=== PATIENT | female | born 1985 | race Caucasian/White ===

== ENCOUNTER 2017-07-19 23:09 | Emergency (ER) | payer BC, OTHER ==
[~2017-07-19] VITALS: Ht 162.6 cm; Wt 63.5 kg
[~2017-07-19 23:09] MED LIST: ACHD5005 PO; ALPR1TAB2 PO; CEPH500C PO; DOXY100C2 PO; DOXY100C42 PO; HYDR-1231 PO; HYDR-3714 PO; IBP800T PO; ONDA8TAB9 PO; PHEN200T27 PO; SULF-222 PO; SULF1TAB23 PO; TRM50T PO; VENL150C PO; VNL37.5T PO
--- OUTSIDE RECORDS SUMMARY | 2017-07-19 23:16 | XMS REPORT ---
Author Author TOMASZ ALARCON [facility] eClinical[employer] Address Unknown Phone Unavailable Care Team Providers Care Animal Sitter Name Role Phone TOMASZ ALARCON CP Unavailable Allergies, Adverse Reactions, Alerts Substance Reaction Event Type N.K.D.A. Info Not Available Non Drug Allergy Problems Problem Type Condition ICD-9 Code Onset Dates Condition Status Problem Acute bronchitis 466.0 Active Problem Urinary frequency 788.41 Active Problem Generalized anxiety disorder 300.02 Active Assessment Generalized anxiety disorder 300.02 Active Problem Unspecified disorder of menstruation and other abnormal bleeding from female genital tract 626.9 Active Problem Other and unspecified noninfectious gastroenteritis and colitis 558.9 Active Medications Medication Code System Code Instructions Start Date End Date Status Dosage Lexapro [facility] [address]-85 10 MG Orally Once a day Dec 23, [address] [facility] [address]-87 0.25 MG Orally 1-2 times a day as needed for anxiety Dec 23, 2014 1 tablet Procedures Procedure Coding System Code Date Office Visit, Est Pt., Level 4 CPT-4 87067 Dec 23, 2014 Vital Signs Date/Time: Dec 23, 2014 Temperature 99.3 F Weight 143.4 lbs Height 64 in BMI 24.61 Index Blood Pressure Diastolic 90 mmHg Blood Pressure Systolic 148 mmHg Cardiac Monitoring Heart Rate 80 bpm Results No Known Results Summary Purpose eClinicalWorks Submission
--- OUTSIDE RECORDS SUMMARY | 2017-07-19 23:16 | XMS REPORT | Continuity of Care Document ---
Author Author [facility] Address Unknown Phone Unavailable Allergies Active Description Code Type Severity Reaction Onset Reported/Identified Relationship to Patient Clinical Status Yes No Known Drug Allergies [id number] Drug Allergy Unknown N/A 08/24/2010 Medications There is no data. Problems Date Dx Coded Attending Type Code Diagnosis Diagnosed By 12/22/2007 DWAYNE SHARMA DO 787.02 NAUSEA ALONE 12/22/2007 DWAYNE SHARMA DO 789.01 ABDOMINAL PAIN RIGHT UPPER QUADRANT 01/29/2008 DWAYNE SHARMA DO 463 TONSILLITIS ACUTE 08/24/2010 Ot 634.91 08/26/2010 Ot 634.91 07/13/2011 DWAYNE SHARMA DO 558.9 GASTROENTERITIS NONINFECTIOUS 10/04/2011 DWAYNE SHARMA DO 466.0 ACUTE BRONCHITIS 01/10/2012 Ot 789.00 01/12/2012 Ot 789.00 07/11/2012 DWAYNE SHARMA DO 626.9 UNSPECIFIED DISORDERS OF MENSTRUATION AND OTHER ABNORMAL BLEEDING FROM FEMALE GENITAL TRACT 07/11/2012 DWAYNE SHARMA DO 788.41 URINARY FREQUENCY 11/06/2012 SKINNY SOTO Ot 599.0 11/06/2012 SKINNY SOTO Ot 789.03 09/14/2013 YANELI OH, KAYE Aranda Ot 682.6 02/18/2014 SANA OH, REG Duron Ot 682.5 02/19/2014 JESSY OH, EHSAN Odonnell Ot 682.5 Procedures Code [place] [address] URINE TEST (IN- HOUSE) 07/11/2012 75349 UA W/ CULTURE IF INDICATED 07/11/2012 39601 GC/CHLAM URINE (STATE) 07/12/2012 Results There is no data. Encounters ACCT No. Visit Date/Time Discharge Status Pt. Type Provider Facility Loc./Unit Complaint [id number] 07/11/2012 15:08:00 07/11/2012 23:59:59 CLS Outpatient DWAYNE SHARMA DO [id number] 09/12/2014 10:14:00 09/12/2014 13:41:00 DIS Emergency YANELI OH, KAYE Aranda [facility] ER [id number] 02/19/2014 09:29:00 02/19/2014 11:13:00 DIS Emergency JESSY OH, EHSAN Odonnell [facility] ER [id number] 02/18/2014 07:11:00 02/18/2014 07:59:00 DIS Emergency SANA OH, REG Duron [facility] ER [id number] 09/14/2013 14:26:00 09/14/2013 15:30:00 DIS Emergency KAYE GROVES MD [facility] ER [id number] 11/06/2012 12:45:00 11/06/2012 15:38:00 DIS Emergency SKINNY SOTO [facility] ER [id number] 01/12/2012 13:50:00 Document Registration [id number] 01/10/2012 13:45:00 Document Registration [id number] 08/26/2010 16:13:00 Document Registration [id number] 08/24/2010 16:47:00 Document Registration [email or web address] 09/12/2014 10:16:01 ACT Document Registration
[2017-07-19 23:40] VITALS: BP_SYST 124; BP_SYST 126; BP_SYST 142; BP_DIAS 64; BP_DIAS 69; BP_DIAS 74
[2017-07-19] MEDS ORDERED: LACTATED RINGERS 1,000 ML IV ONE (23:51)
[2017-07-20 00:03] LABS: BASOPHILS % (AUTO) 0 % (0-10); EOSINOPHILS # (AUTO) 0.2 10^3/uL (0.0-0.3); EOSINOPHILS % (AUTO) 2 % (0-10); HEMATOCRIT 37 % (35-52); LYMPHOCYTES % (AUTO) 21 % (12-44); MEAN CORPUSCULAR HEMOGLOBIN 35 PG (25-34); MEAN CORPUSCULAR HGB CONC 35 G/DL (32-36); MEAN CORPUSCULAR VOLUME 101 FL (80-99); MEAN PLATELET VOLUME 9.1 FL (7.4-10.4); MONOCYTES # (AUTO) 0.9 X 10^3 (0.0-1.0); MONOCYTES % (AUTO) 6 % (0-12); NEUTROPHILS # (AUTO) 10.3 X 10^3 (1.8-7.8); NEUTROPHILS % (AUTO) 71 % (42-75); PLATELET COUNT 284 10^3/uL (130-400); RED BLOOD COUNT 3.67 10^6/uL (4.35-5.85); RED CELL DISTRIBUTION WIDTH 11.7 % (10.0-14.5); WHITE BLOOD COUNT 14.4 10^3/uL (4.3-11.0)
[2017-07-20 00:17] LABS: BAND NEUTROPHILS 0 %; BASOPHILS % (MANUAL) 0 %; EOSINOPHILS % (MANUAL) 2 %; LYMPHOCYTES % (MANUAL) 26 %; MONOCYTES % (MANUAL) 2 %; NEUTROPHILS % (MANUAL) 70 %; RBC MORPH NORMAL
--- NOTE | 2017-07-20 00:31 | ED Syncope ---
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 family reports that when the patient was found she was on the floor 'snoring' patient reports her R foot hurts, denies other pain. patient reports nausea that improved after emesis x 1 in [address] lot. patient denies being sick recently or symptoms at this time. Patient ambulated independently to exam room 10 without slow and steady gait Source of Information: Patient, Family (sister), Spouse (fiance) Exam Limitations: No Limitations History of Present Illness Date Seen by Provider: Jul 20, 2017 Time Seen by Provider: 00:15 Initial Comments Patient presents to the ER by private conveyance with her sister and sharee with a chief complaint that tonight she was making popcorn in the kitchen when she started feeling dizzy like she could pass out. She did not have any palpitations, fevers, chills or nausea. She says she put her head down on the counter and then the next thing she knew she woke up with her fianc standing over her. The finino says she was out for about 30 seconds, snoring. She said after that she had a bit of a headache for a few minutes and some nausea and vomited 1 with no blood in it. She says she cannot be because she has a copper T IUD in place. She says her head is not hurting now. She is not on any blood thinners or any medicines at all. She does not have any significant medical or surgical history. She denies dysuria, nausea, abdominal pain, chest pain, thyroid disorder. Allergies and Home Medications Allergies Coded Allergies: No Known Drug Allergies (Unverified , 08/24/10) Home Medications No Active Prescriptions or Reported Meds Patient Home Medication List Home Medication List Reviewed: Yes Constitutional: see HPI, No chills, No diaphoresis, No dizziness, No fever, No malaise, No weakness EENTM: No ear discharge, No ear pain Respiratory: No cough, No short of breath, No wheezing Cardiovascular: see HPI, No chest pain, No edema, No Hx of Intervention, No palpitations, syncope, No vascular heart diseas Gastrointestinal: No abdominal pain, No constipation, No diarrhea, No nausea Genitourinary: No discharge, No dysuria : No Control/STD Prophylaxis: IUD Musculoskeletal: No back pain, No joint pain Skin: No pruritus, No rash Past Dsrveej-Iplxpy-Qqtrsf Hx Patient Social History Alcohol Use: Occasionally Uses Recreational Drug Use: No Smoking Status: Current Everyday Smoker Type Used: Cigarettes Recent Foreign Travel: No Contact w/Someone Who Travel: No Recent Infectious Disease Expo: No Physical Abuse: No Sexual Abuse: No Immunizations Up To Date Date of Influenza Vaccine: Jan 30, 2011 Seasonal Allergies Seasonal Allergies: No Surgeries History of Surgeries: No Respiratory History of Respiratory Disorde: No Cardiovascular History of Cardiac Disorders: No Neurological History of Neurological Disord: No Reproductive System Hx Reproductive Disorders: No Sexually Transmitted Disease: No HIV/AIDS: 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 Physical Exam Vital Signs Vital Signs - First Documented 07/19/17 23:34 Temp 98.1 Pulse 84 Resp 18 B/P (MAP) 142/74 (96) Pulse Ox 99 Capillary Refill : Less Than 3 Seconds General Appearance: No Apparent Distress, WD/WN HEENT: PERRL/EOMI, Pharynx Normal Neck: Full Range of Motion, Normal Inspection, Non Tender, Supple Cardiovascular: Regular Rate, Rhythm, No Edema, No Gallop, No JVD, Normal Peripheral Pulses, Systolic Murmur (2/6) Respiratory: Chest Non Tender, Lungs Clear, Normal Breath Sounds, No Accessory Muscle Use, No Respiratory Distress Gastrointestinal: Normal Bowel Sounds, No Organomegaly, Non Tender, Soft Back: Normal Inspection, No CVA Tenderness Extremities: Normal Capillary Refill, Normal Inspection, Non Tender, No Calf Tenderness, No Pedal Edema Neurologic/Psychiatric: Alert, Oriented x3, No Motor/Sensory Deficits, Normal Mood/Affect, health center assistant II-XII Norm as Tested Cranial Nerves: Normal Hearing, Normal Speech, PERRL Coordination/Gait: Normal Finger to Nose, Normal Gait Motor/Sensory: No Motor Deficit, No Sensory Deficit Skin: Normal Color, Warm/Dry Lymphatic: No Adenopathy Progress/Results/Core Measures Results/Orders Lab Results Laboratory Tests Test 07/19/17 23:55 07/20/17 00:35 Range/Units White Blood Count 14.4 H 4.3-11.0 10^3/uL Red Blood Count 3.67 L 4.35-5.85 10^6/uL Hemoglobin 13.0 11.5-16.0 G/DL Hematocrit 37 35-52 % Mean Corpuscular Volume 101 H 80-99 FL Mean Corpuscular Hemoglobin 35 H 25-34 PG Mean Corpuscular Hemoglobin Concent 35 32-36 G/DL Red Cell Distribution Width 11.7 10.0-14.5 % Platelet Count 284 130-400 10^3/uL Mean Platelet Volume 9.1 7.4-10.4 FL Neutrophils (%) (Auto) 71 42-75 % Lymphocytes (%) (Auto) 21 12-44 % Monocytes (%) (Auto) 6 0-12 % Eosinophils (%) (Auto) 2 0-10 % Basophils (%) (Auto) 0 0-10 % Neutrophils # (Auto) 10.3 H 1.8-7.8 X 10^3 Lymphocytes # (Auto) 3.0 1.0-4.0 X 10^3 Monocytes # (Auto) 0.9 0.0-1.0 X 10^3 Eosinophils # (Auto) 0.2 0.0-0.3 10^3/uL Basophils # (Auto) 0.0 0.0-0.1 10^3/uL Neutrophils % (Manual) 70 % Lymphocytes % (Manual) 26 % Monocytes % (Manual) 2 % Eosinophils % (Manual) 2 % Basophils % (Manual) 0 % Band Neutrophils 0 % Blood Morphology Comment NORMAL Sodium Level 137 135-145 MMOL/L Potassium Level 3.9 3.6-5.0 MMOL/L Chloride Level 105 98-107 MMOL/L Carbon Dioxide Level 23 21-32 MMOL/L Anion Gap 9 5-14 MMOL/L Blood Urea Nitrogen 14 7-18 MG/DL Creatinine 0.90 0.60-1.30 MG/DL Estimat Glomerular Filtration Rate > 60 BUN/Creatinine Ratio 16 Glucose Level 102 70-105 MG/DL Calcium Level 8.5 8.5-10.1 MG/DL Total Bilirubin 0.2 0.1-1.0 MG/DL Aspartate Amino Transf (AST/SGOT) 18 5-34 U/L Alanine Aminotransferase (ALT/SGPT) 14 0-55 U/L Alkaline Phosphatase 30 L 40-136 U/L C-Reactive Protein High Sensitivity 0.03 0.00-0.50 MG/DL Total Protein 6.2 L 6.4-8.2 GM/DL Albumin 3.8 3.2-4.5 GM/DL Thyroid Stimulating Hormone (TSH) 3.33 0.35-4.94 UIU/ML Serum Alcohol < 10 <10 MG/DL Urine Color YELLOW Urine Clarity CLEAR Urine pH 6.5 5-9 Urine Specific [place] 1.015 L 1.016-1.022 Urine Protein NEGATIVE NEGATIVE Urine Glucose (UA) NEGATIVE NEGATIVE Urine Ketones NEGATIVE NEGATIVE Urine Nitrite NEGATIVE NEGATIVE Urine Bilirubin NEGATIVE NEGATIVE Urine Urobilinogen 1 NORMAL MG/DL Urine Leukocyte Esterase 1+ H NEGATIVE Urine RBC (Auto) 2+ H NEGATIVE Urine RBC RARE /HPF Urine WBC 0-2 /HPF Urine Squamous Epithelial Cells 10-25 H /HPF Urine Crystals NONE /LPF Urine Bacteria TRACE /HPF Urine Casts NONE /LPF Urine Mucus SMALL H /LPF Urine Culture Indicated NO Urine Test NEGATIVE NEGATIVE Urine Opiates Screen NEGATIVE NEGATIVE Urine Oxycodone Screen NEGATIVE NEGATIVE Urine Methadone Screen NEGATIVE NEGATIVE Urine Propoxyphene Screen NEGATIVE NEGATIVE Urine Barbiturates Screen NEGATIVE NEGATIVE Ur Tricyclic Antidepressants Screen NEGATIVE NEGATIVE Urine Phencyclidine Screen NEGATIVE NEGATIVE Urine Amphetamines Screen NEGATIVE NEGATIVE Urine Methamphetamines Screen NEGATIVE NEGATIVE Urine Benzodiazepines Screen NEGATIVE NEGATIVE Urine Cocaine Screen NEGATIVE NEGATIVE Urine Cannabinoids Screen POSITIVE H NEGATIVE My Orders Orders - BELKIS,OG J Ekg Tracing (07/19/17 23:42) Alcohol (07/19/17 23:51) Cbc With Automated Diff (07/19/17 23:51) Comprehensive Metabolic Panel (07/19/17 23:51) Hs C Reactive Protein (07/19/17 23:51) Drug Screen Stat (Urine) (07/19/17 23:51) Hcg,Qualitative Urine (07/19/17 23:51) Ua Culture If Indicated (07/19/17 23:51) Saline Lock/Iv-Start (07/19/17 23:51) Lactated Ringers (Lr 1000 Ml Iv Solution (07/19/17 23:51) Manual Differential (07/19/17 23:55) Chest Pa/Lat (2 View) (07/20/17 00:25) Foot, Right, 3 View (07/20/17 00:25) Thyroid Stimulating Hormone (07/20/17 00:31) Acetaminophen Tablet (Tylenol Tablet) (07/20/17 00:45) Medications Given in ED Current Medications Medications Dose Ordered Sig/Roma Route Start Time Stop Time Status Last Admin Dose Admin Acetaminophen 1,000 mg ONCE ONCE PO 07/20/17 00:45 07/20/17 00:46 DC 07/20/17 01:10 1,000 MG Lactated Ringer's 1,000 ml @ 0 mls/hr Q0M ONCE IV 07/19/17 23:51 07/19/17 23:52 DC 07/19/17 23:59 0 MLS/HR Vital Signs/I&O Vital Sign - Last 12Hours 07/19/17 07/19/17 23:34 23:40 Temp 98.1 Pulse 84 84 92 100 Resp 18 B/P (MAP) 142/74 (96) 142/74 (96) 126/64 (84) 124/69 (87) Pulse Ox 99 Blood Pressure Mean: 87 Progress Note : Time: 02:16 Progress Note Mild elevation of the white cell count without a left shift or evidence of infection. Could be due to her recent syncopal episode. She has a very slight S1 murmur and will get her set up outpatient to work this up. Her blood pressures improved since getting her some fluids she can get up and walk around her go home and follow up outpatient. ECG Initial ECG Impression Date: Jul 19, 2017 Initial ECG Impression Time: 23:44 Initial ECG Rate: 80 Initial ECG Rhythm: Normal Sinus Initial ECG Intervals: Normal Initial ECG Impression: Normal Initial ECG Comparisson: No Previous ECG Available Comment No ST segment elevation or depression. Diagnostic Imaging Diagonstic Imaging: Xray Plain Films/CT/US/NM/MRI: chest (2v) Comments No acute cardiopulmonary processes noted. Reviewed: Reviewed by Me Diagonstic Imaging: Xray Plain Films/CT/US/NM/MRI: other (right foot) Comments No acute osseous abnormalities noted. Reviewed: Reviewed by Me Departure Impression Impression: Primary Impression: Syncope Qualified Codes: R55 - Syncope and collapse Additional Impressions: Leukocytosis, unspecified Right foot pain Disposition: HOME, SELF-CARE Condition: Improved Departure-Patient Inst. Decision time for Depature: 02:20 Referrals: ED ALANIS MD (PCP/Family) Primary Care Physician Patient Instructions: LOCAL PHYSICIAN LIST, Syncope (Fainting) (DC) Add. Discharge Instructions: Establish care with a primary care physician and discuss your symptoms in the next couple weeks. It may be reasonable to follow up and discuss your heart murmur if it still there. If your symptoms become more frequent or you start having new or other worrisome symptoms return to the ER for further evaluation. Drink plenty of fluids and avoid caffeine. For your foot pain you can use Tylenol 1000 mg every 8 hours and/or ibuprofen 800 mg every 8 hours as well as an ice pack every 4 hours for the first couple days or a Felix bandage. All discharge instructions reviewed with patient and/or family. Voiced understanding. Scripts No Active Prescriptions or Reported Meds Work/School Note: Work Release Form Date Seen in the Emergency Department: Jul 20, 2017 Return to Work: Jul 21, 2017 Restrictions: No Restrictions OG TAMAYO Jul 20, 2017 00:30
[2017-07-20 00:39] LABS: ALANINE AMINOTRANSFERASE 14 U/L (0-55); ALBUMIN 3.8 GM/DL (3.2-4.5); ALKALINE PHOSPHATASE 30 U/L (40-136); BILIRUBIN,TOTAL 0.2 MG/DL (0.1-1.0); BUN/CREATININE RATIO 16; CALCIUM 8.5 MG/DL (8.5-10.1); CARBON DIOXIDE 23 MMOL/L (21-32); CHLORIDE 105 MMOL/L (98-107); GFR ESTIMATED > 60; GLUCOSE 102 MG/DL (70-105); POTASSIUM 3.9 MMOL/L (3.6-5.0); SODIUM 137 MMOL/L (135-145); TOTAL PROTEIN 6.2 GM/DL (6.4-8.2)
[2017-07-20] MEDS ORDERED: ACETAMINOPHEN 500 MG TAB (TYLENOL) PO ONE (00:45)
[2017-07-20 00:58] LABS: BILIRUBIN,URINE NEGATIVE (NEGATIVE); CLARITY,URINE CLEAR; COLOR,URINE YELLOW; GLUCOSE, URINE (UA) NEGATIVE (NEGATIVE); KETONES,URINE NEGATIVE (NEGATIVE); LEUKOCYTE ESTERASE ,URINE 1+ (NEGATIVE); NITRITE,URINE NEGATIVE (NEGATIVE); PH,URINE 6.5 (5-9); PROTEIN,URINE NEGATIVE (NEGATIVE); UROBILINOGEN,URINE 1 MG/DL (NORMAL)
[2017-07-20 01:00] LABS: BACTERIA,URINE TRACE /HPF; RBC,URINE RARE /HPF; WBC,URINE 0-2 /HPF
[2017-07-20 01:04] LABS: HCG,QUALITATIVE URINE NEGATIVE (NEGATIVE)
[2017-07-20 01:05] LABS: AMPHETAMINE SCREEN, URINE NEGATIVE (NEGATIVE); BARBITURATE SCREEN URINE NEGATIVE (NEGATIVE); BENZODIAZEPINES SCREEN URINE NEGATIVE (NEGATIVE); CANNABINOID SCREEN, URINE POSITIVE (NEGATIVE); COCAINE SCREEN URINE NEGATIVE (NEGATIVE); METHADONE STAT NEGATIVE (NEGATIVE); METHAMPHETAMINE SCREEN URINE S NEGATIVE (NEGATIVE); OPIATE SCREEN URINE NEGATIVE (NEGATIVE); OXYCODONE STAT NEGATIVE (NEGATIVE); PROPOXYPHENE STAT NEGATIVE (NEGATIVE); TRICYCLIC ANTIDEPRESSANTS SCRE NEGATIVE (NEGATIVE)
[2017-07-20 02:29] VITALS: BP 114/64
--- NOTE | 2017-07-20 06:05 | Diagnostic Imaging Report ---
Indication: Right foot injury 3 views of the right foot show no fracture, dislocation or other acute abnormalities. Impression: Negative right foot Dictated by: Dictated on workstation # [id number]
--- NOTE | 2017-07-20 06:07 | Diagnostic Imaging Report ---
Indication: Syncope PA and lateral chest Heart size and pulmonary vascular normal. Lungs are clear. There are no effusions or pneumothoraces. Impression: Negative chest Dictated by: Dictated on workstation # [id number]
== END 2017-07-20 02:29 | disposition home or self-care (01) ==
LOC: EDUNIT# 23:09 → ER 23:12
DX: M79.671 Pain in right foot (principal); R55 Syncope and collapse; D72.829 Elevated white blood cell count, unspecified; F41.9 Anxiety disorder, unspecified; F17.210 Nicotine dependence, cigarettes, uncomplicated; Z97.5 Presence of (intrauterine) contraceptive device; W01.198A Fall on same level from slipping, tripping and stumbling with subsequent striking against other object, initial encounter; Y92.000 Kitchen of unspecified non-institutional (private) residence as the place of occurrence of the external cause
CPT/HCPCS: 36415; 71046; 73630; 80053; 80306; 80320; 81000; 84443; 84703; 85007; 85027; 86141; 93005; 96360

== ENCOUNTER 2017-07-22 14:07 | Emergency (ER) | payer BC ==
[~2017-07-22] VITALS: Ht 165.1 cm; Wt 65.8 kg
[2017-07-22 15:27] LABS: BILIRUBIN,URINE NEGATIVE (NEGATIVE); CLARITY,URINE CLEAR; COLOR,URINE YELLOW; GLUCOSE, URINE (UA) NEGATIVE (NEGATIVE); KETONES,URINE NEGATIVE (NEGATIVE); LEUKOCYTE ESTERASE ,URINE 2+ (NEGATIVE); NITRITE,URINE NEGATIVE (NEGATIVE); PH,URINE 7 (5-9); PROTEIN,URINE NEGATIVE (NEGATIVE); UROBILINOGEN,URINE NORMAL (NORMAL)
[2017-07-22 15:28] LABS: BASOPHILS % (AUTO) 0 % (0-10); EOSINOPHILS # (AUTO) 0.1 10^3/uL (0.0-0.3); EOSINOPHILS % (AUTO) 1 % (0-10); HEMATOCRIT 39 % (35-52); HEMOGLOBIN 14.3 G/DL (11.5-16.0); LYMPHOCYTES # (AUTO) 2.6 X 10^3 (1.0-4.0); LYMPHOCYTES % (AUTO) 23 % (12-44); MEAN CORPUSCULAR HEMOGLOBIN 36 PG (25-34); MEAN CORPUSCULAR HGB CONC 37 G/DL (32-36); MEAN CORPUSCULAR VOLUME 97 FL (80-99); MEAN PLATELET VOLUME 9.6 FL (7.4-10.4); MONOCYTES # (AUTO) 0.6 X 10^3 (0.0-1.0); MONOCYTES % (AUTO) 6 % (0-12); NEUTROPHILS % (AUTO) 71 % (42-75); PLATELET COUNT 292 10^3/uL (130-400); RED BLOOD COUNT 4.01 10^6/uL (4.35-5.85); RED CELL DISTRIBUTION WIDTH 11.5 % (10.0-14.5); WHITE BLOOD COUNT 11.3 10^3/uL (4.3-11.0)
[2017-07-22 15:47] LABS: ALANINE AMINOTRANSFERASE 15 U/L (0-55); ALBUMIN 4.2 GM/DL (3.2-4.5); ALKALINE PHOSPHATASE 36 U/L (40-136); BILIRUBIN,TOTAL 0.7 MG/DL (0.1-1.0); BUN/CREATININE RATIO 10; CARBON DIOXIDE 22 MMOL/L (21-32); CHLORIDE 110 MMOL/L (98-107); CREATININE SERUM 0.67 MG/DL (0.60-1.30); GFR ESTIMATED > 60; GLUCOSE 90 MG/DL (70-105); POTASSIUM 3.9 MMOL/L (3.6-5.0); SODIUM 139 MMOL/L (135-145); TOTAL PROTEIN 7.2 GM/DL (6.4-8.2)
--- NOTE | 2017-07-22 16:01 | Diagnostic Imaging Report ---
PROCEDURE: CT head without contrast. TECHNIQUE: Multiple contiguous axial images were obtained through the brain without the use of intravenous contrast. INDICATION: Exposure to meningitis. COMPARISON: No prior studies are available for comparison. FINDINGS: The ventricles and sulci are within normal limits. No sulcal effacement, midline shift, or hemorrhage is detected. The cisterns are patent. The visualized paranasal sinuses are clear. IMPRESSION: No acute intracranial process is detected. Dictated by: Dictated on workstation # [id number]
--- NOTE | 2017-07-22 16:07 | ED General ---
General Chief Complaint: Head/Cervical Problems Stated Complaint: MENINGITIS RISK Source of Information: Patient Allergies and Home Medications Allergies Coded Allergies: No Known Drug Allergies (Unverified , 08/24/10) Home Medications No Active Prescriptions or Reported Meds Past Owpdbdg-Nzzxji-Zvmfkz Hx Patient Social History Type Used: Cigarettes Recent Foreign Travel: No Contact w/Someone Who Travel: No Immunizations Up To Date Date of Influenza Vaccine: Jan 30, 2011 Seasonal Allergies Seasonal Allergies: No Surgeries History of Surgeries: No Respiratory History of Respiratory Disorde: No Cardiovascular History of Cardiac Disorders: No Neurological History of Neurological Disord: No Reproductive System Hx Reproductive Disorders: No Sexually Transmitted Disease: No 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 Physical Exam Vital Signs Capillary Refill : Focused Exam Evaluation Lactate Level Laboratory Tests 07/22/17 15:15: Lactic Acid Level 1.10 Lactic Acid Level Laboratory Tests Test 07/22/17 15:15 Lactic Acid Level 1.10 MMOL/L (0.50-2.00) Progress/Results/Core Measures Suspected Sepsis SIRS Temperature: Pulse: Respiratory Rate: Laboratory Tests 07/22/17 15:15: White Blood Count 11.3H Blood Pressure / Mean: Laboratory Tests 07/22/17 15:15: Lactic Acid Level 1.10 Laboratory Tests 07/22/17 15:15: Creatinine 0.67, Platelet Count 292, Total Bilirubin 0.7 Results/Orders Lab Results Laboratory Tests Test 07/22/17 15:15 07/22/17 15:20 Range/Units White Blood Count 11.3 H 4.3-11.0 10^3/uL Red Blood Count 4.01 L 4.35-5.85 10^6/uL Hemoglobin 14.3 11.5-16.0 G/DL Hematocrit 39 35-52 % Mean Corpuscular Volume 97 80-99 FL Mean Corpuscular Hemoglobin 36 H 25-34 PG Mean Corpuscular Hemoglobin Concent 37 H 32-36 G/DL Red Cell Distribution Width 11.5 10.0-14.5 % Platelet Count 292 130-400 10^3/uL Mean Platelet Volume 9.6 7.4-10.4 FL Neutrophils (%) (Auto) 71 42-75 % Lymphocytes (%) (Auto) 23 12-44 % Monocytes (%) (Auto) 6 0-12 % Eosinophils (%) (Auto) 1 0-10 % Basophils (%) (Auto) 0 0-10 % Neutrophils # (Auto) 8.0 H 1.8-7.8 X 10^3 Lymphocytes # (Auto) 2.6 1.0-4.0 X 10^3 Monocytes # (Auto) 0.6 0.0-1.0 X 10^3 Eosinophils # (Auto) 0.1 0.0-0.3 10^3/uL Basophils # (Auto) 0.0 0.0-0.1 10^3/uL Sodium Level 139 135-145 MMOL/L Potassium Level 3.9 3.6-5.0 MMOL/L Chloride Level 110 H 98-107 MMOL/L Carbon Dioxide Level 22 21-32 MMOL/L Anion Gap 7 5-14 MMOL/L Blood Urea Nitrogen 7 7-18 MG/DL Creatinine 0.67 0.60-1.30 MG/DL Estimat Glomerular Filtration Rate > 60 BUN/Creatinine Ratio 10 Glucose Level 90 70-105 MG/DL Lactic Acid Level 1.10 0.50-2.00 MMOL/L Calcium Level 9.0 8.5-10.1 MG/DL Total Bilirubin 0.7 0.1-1.0 MG/DL Aspartate Amino Transf (AST/SGOT) 20 5-34 U/L Alanine Aminotransferase (ALT/SGPT) 15 0-55 U/L Alkaline Phosphatase 36 L 40-136 U/L Total Protein 7.2 6.4-8.2 GM/DL Albumin 4.2 3.2-4.5 GM/DL Urine Color YELLOW Urine Clarity CLEAR Urine pH 7 5-9 Urine Specific [place] 1.005 L 1.016-1.022 Urine Protein NEGATIVE NEGATIVE Urine Glucose (UA) NEGATIVE NEGATIVE Urine Ketones NEGATIVE NEGATIVE Urine Nitrite NEGATIVE NEGATIVE Urine Bilirubin NEGATIVE NEGATIVE Urine Urobilinogen NORMAL NORMAL MG/DL Urine Leukocyte Esterase 2+ H NEGATIVE Urine RBC (Auto) 4+ H NEGATIVE Urine RBC 5-10 H /HPF Urine WBC 2-5 /HPF Urine Squamous Epithelial Cells 2-5 /HPF Urine Crystals NONE /LPF Urine Bacteria NONE /HPF Urine Casts NONE /LPF Urine Mucus NEGATIVE /LPF Urine Culture Indicated NO Urine Test NEGATIVE NEGATIVE My Orders Orders - SULAIMAN GRAVES DO Saline Lock/Iv-Start (07/22/17 15:12) Cbc With Automated Diff (07/22/17 15:12) Comprehensive Metabolic Panel (07/22/17 15:12) Lactic Acid Analyzer (07/22/17 15:12) Ua Culture If Indicated (07/22/17 15:12) Blood Culture (07/22/17 15:12) Influenza A And B Antigens (07/22/17 15:12) Ct Head Wo (07/22/17 15:12) Hcg,Qualitative Urine (07/22/17 15:12) Vital Signs/I&O Capillary Refill : Diagnostic Imaging Comments CT HEAD--NO ACUTE PROCESS, PER RADIOLOGIST REPORT @ 1604 Reviewed: Reviewed by Me Departure Impression Impression: Primary Impression: Normal exam Disposition: 01 HOME, SELF-CARE Condition: Stable Departure-Patient Inst. Referrals: ED ALANIS MD (PCP/Family) Primary Care Physician Patient Instructions: NO INSTRUCTIONS GIVEN Add. Discharge Instructions: FOLLOW UP WITH YOUR DR NEEDED All discharge instructions reviewed with patient and/or family. Voiced understanding. Scripts No Active Prescriptions or Reported Meds SULAIMAN GRAVES DO Jul 22, 2017 16:07
[2017-07-22] MEDS ORDERED: CIPROFLOXACIN 500 MG (CIPRO) TABLET PO ONE (16:15)
[2017-07-22] MEDS ORDERED: CIPROFLOXACIN 500 MG (CIPRO) TABLET PO SCH (16:15)
[2017-07-22 16:20] VITALS: BP 122/64
== END 2017-07-22 16:20 | disposition home or self-care (01) ==
LOC: EDUNIT# 14:07 → ER 14:09
DX: Z03.89 Encounter for observation for other suspected diseases and conditions ruled out (principal)
CPT/HCPCS: 36415; 70450; 80053; 81000; 83605; 84703; 85025; 87040; 87804

== ENCOUNTER → 2017-08-25 | Outpatient (CLI) | payer BC ==
[2017-08-25 13:01] LABS: BASOPHILS % (AUTO) 0 % (0-10); EOSINOPHILS % (AUTO) 0 % (0-10); HEMATOCRIT 37 % (35-52); HEMOGLOBIN 13.3 G/DL (11.5-16.0); LYMPHOCYTES # (AUTO) 1.5 X 10^3 (1.0-4.0); LYMPHOCYTES % (AUTO) 20 % (12-44); MEAN CORPUSCULAR HEMOGLOBIN 35 PG (25-34); MEAN CORPUSCULAR HGB CONC 36 G/DL (32-36); MEAN CORPUSCULAR VOLUME 98 FL (80-99); MEAN PLATELET VOLUME 8.8 FL (7.4-10.4); MONOCYTES # (AUTO) 0.4 X 10^3 (0.0-1.0); MONOCYTES % (AUTO) 5 % (0-12); NEUTROPHILS # (AUTO) 5.7 X 10^3 (1.8-7.8); NEUTROPHILS % (AUTO) 75 % (42-75); PLATELET COUNT 300 10^3/uL (130-400); RED BLOOD COUNT 3.79 10^6/uL (4.35-5.85); WHITE BLOOD COUNT 7.5 10^3/uL (4.3-11.0)
== END ==
LOC: CARD 12:44
PROVIDERS: ATTEND Family Medicine
DX: R01.1 Cardiac murmur, unspecified (principal); D72.829 Elevated white blood cell count, unspecified
CPT/HCPCS: 36415; 85025; 93306

== ENCOUNTER 2018-08-10 11:47 | Emergency (ER) | payer BC | END 2018-08-10 12:45 | disposition left against medical advice (07) | LOC: EDUNIT# 11:47 → ER 11:48 | DX: R07.9 Chest pain, unspecified (principal) ==

== ENCOUNTER 2018-08-15 06:46 | Outpatient (CLI) | payer BC ==
[~2018-08-15] VITALS: Ht 165.1 cm; Wt 65.8 kg
[2018-08-16] MEDS ORDERED: IBUP-1780 PO (12:32)
[2018-08-16] MEDS ORDERED: OXYC1TAB87 PO (12:32)
== END 2018-08-15 10:59 | disposition home or self-care (01) ==
LOC: PREOP 06:46
PROVIDERS: ATTEND Obstetrics & Gynecology
DX: Z01.818 Encounter for other preprocedural examination (principal)

== ENCOUNTER 2018-08-16 11:17 | Day surgery (SDC) | payer BC ==
[~2018-08-16] VITALS: Ht 165.1 cm; Wt 65.8 kg
[2018-08-16 11:30] VITALS: BP 122/77
[2018-08-16] MEDS ORDERED: ONDANSETRON 4 MG/2 ML (SDV) Z0FRAN ONE (11:34)
[2018-08-16] MEDS ORDERED: LIDOCAINE PF 2% 5 ML (XYLOCAINE) VIAL ONE (11:34)
[2018-08-16] MEDS ORDERED: MIDAZOLAM 2 MG/2 ML (VERSED) VIAL ONE (11:34)
[2018-08-16] MEDS ORDERED: fentaNYL INJECTION 100 MCG/2 ML AMP ONE ×2 (11:34→12:43)
[2018-08-16] MEDS ORDERED: proPOfol 200 MG/20 ML (DIPRIVAN) VIAL IV ONE (11:34)
[2018-08-16] MEDS ORDERED: SEVOFLURANE (ULTANE) 15 ML INHAL SOLN ONE ×3 (11:39→13:07)
--- OUTSIDE RECORDS SUMMARY | 2018-08-16 11:53 | XMS REPORT ---
Author Author Migration, Doctor Organization [facility] Address Unknown Phone Unavailable Care Team Providers Care Marketing Support Assistant Name Role Phone Migration, Doctor Unavailable Unavailable PROBLEMS Type Condition ICD9-CM Code DEZ51-XM Code Onset Dates Condition Status SNOMED Code Problem Acute bronchitis 466.0 Active 63772410 Problem Generalized anxiety disorder 300.02 Active 21097202 Problem Urinary frequency 788.41 Active 538812756 Problem Unspecified disorder of menstruation and other abnormal bleeding from female genital tract 626.9 Active 531210888 Problem Other and unspecified noninfectious gastroenteritis and colitis 558.9 Active [id number] ALLERGIES No Information ENCOUNTERS Encounter Location Date Diagnosis [facility] [id number] [place] [phone] May, Acute sinusitis J01.90 [facility] [id number] [place] [phone] Nov, Generalized anxiety disorder 300.02 [facility] [place] [address] [phone] Jul, [facility] [id number] [place] [phone] Jul, [facility] [id number] [place] [phone] Dec, [facility] [id number] [place] [phone] Sep, [facility] [place] [address] [phone] Jun, [facility] [id number] [place] [phone] Jun, [facility] [place] [address] [phone] Sep, [facility] [place] [address] [facility] [id number] [place] [phone] Jun, [facility] [place] [address] [facility] [id number], [place] [address] Jun, [facility] [place] [address] [facility] [id number] [phone] Jun, IMMUNIZATIONS No Known Immunizations SOCIAL HISTORY Never Assessed REASON FOR VISIT [facility] [place] VITAL SIGNS MEDICATIONS Medication Instructions Dosage Frequency Start Date End Date Duration Status Amoxicillin 500 mg 1 capsule by Oral route 3 times per day for 7 days Sep, Active RESULTS No Results PROCEDURES No Known procedures INSTRUCTIONS MEDICATIONS ADMINISTERED No Known Medications MEDICAL (GENERAL) HISTORY Type Description Date Medical History anxiety Surgical History dilatation and curettage 2009
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
[2018-08-16 11:58] LABS: BASOPHILS % (AUTO) 0 % (0-10); EOSINOPHILS # (AUTO) 0.1 10^3/uL (0.0-0.3); EOSINOPHILS % (AUTO) 2 % (0-10); HEMATOCRIT 41 % (35-52); HEMOGLOBIN 14.5 G/DL (11.5-16.0); LYMPHOCYTES # (AUTO) 1.9 X 10^3 (1.0-4.0); LYMPHOCYTES % (AUTO) 35 % (12-44); MEAN CORPUSCULAR HEMOGLOBIN 35 PG (25-34); MEAN CORPUSCULAR HGB CONC 36 G/DL (32-36); MEAN CORPUSCULAR VOLUME 98 FL (80-99); MEAN PLATELET VOLUME 9.5 FL (7.4-10.4); MONOCYTES # (AUTO) 0.4 X 10^3 (0.0-1.0); MONOCYTES % (AUTO) 7 % (0-12); NEUTROPHILS # (AUTO) 2.9 X 10^3 (1.8-7.8); NEUTROPHILS % (AUTO) 56 % (42-75); PLATELET COUNT 319 10^3/uL (130-400); WHITE BLOOD COUNT 5.2 10^3/uL (4.3-11.0)
[2018-08-16] MEDS ORDERED: LACTATED RINGERS 1,000 ML IV PRN (12:01)
[2018-08-16] MEDS ORDERED: WATER (STERILE) FOR INJECTION 10 ML ONE ×2 (12:03→13:32)
[2018-08-16] MEDS ORDERED: ceFAZolin INJECTION 1,000 MG ONE (12:03)
[2018-08-16] MEDS ORDERED: ceFAZolin INJECTION 1,000 MG in WATER (STERILE) FOR INJECTION 10 ML IV ONE (12:15)
--- NOTE | 2018-08-16 12:28 | Progress Note-Pre Operative ---
Pre-Operative Progress Note H&P Reviewed The H&P was reviewed, patient examined and no changes noted. Date Seen by Provider: Aug 16, 2018 Time Seen by Provider: 12: Date H&P Reviewed: Aug 16, 2018 Time H&P Reviewed: : Pre-Operative Diagnosis: SAUNDRA III / DUB MCKENZIE LITTLEJOHN MD Aug 16, 2018 12:27
--- NOTE | 2018-08-16 12:29 | Progress Note-Post Operative ---
Post-Operative Progess Note Surgeon (s)/Control Clerk Repairs (s) Surgeon MCKENZIE LITTLEJOHN MD Control Clerk Repairs: none Pre-Operative Diagnosis SAUNDRA III / DUB Post-Operative Diagnosis same with path pending Procedure & Operative Findings Date of Procedure 08/16/18 Procedure Performed/Findings Two pass LEEP, ECC, D&C Anesthesia Type geta Estimated Blood Loss Estimated blood loss (mL): min Specimens/Packing Specimens Removed Ectocx / endocx / cx curettage / endometrial curettings Packing: no MCKENZIE LITTLEJOHN MD Aug 16, 2018 12:29
[2018-08-16] MEDS ORDERED: oxyCODONE/APAP 5/325MG (PERCOCET 5) TABLET PO PRN (12:30)
[2018-08-16] MEDS ORDERED: MEPERIDINE (DEMEROL) INJ 100 MG/ML IM ONE (12:30)
[2018-08-16] MEDS ORDERED: ESTROGENS CONJ IV 25 MG/5 ML (PREMARIN) VIAL IVP ONE (12:30)
[2018-08-16] MEDS ORDERED: PROMETHAZINE INJ 25 MG/ML (PHENERGAN) AMP IM ONE (12:30)
[2018-08-16] MEDS ORDERED: D5 LR IV SOLUTION 1,000 ML IV SCH (12:30)
[2018-08-16] MEDS ORDERED: KETOROLAC 30 MG/ML VIAL IVP ONE (12:30)
[2018-08-16] MEDS ORDERED: ONDANSETRON 4 MG/2 ML (SDV) Z0FRAN IVP PRN ×2 (12:30→12:45)
[2018-08-16] MEDS ORDERED: IBUP-1780 PO (12:32)
[2018-08-16] MEDS ORDERED: OXYC1TAB87 PO (12:32)
--- NOTE | 2018-08-16 12:33 | Discharge Instructions ---
Discharge Instructions Discharge Medications New, Converted or Re-Newed RX: RX on Chart Patient Instructions Patient Instructions: as directed Return to The Hospital For: as directed Activity & Diet Discharge Diet: No Restrictions Activity as Tolerated: No Orders-Post D/C & Referrals Follow Up Appt: Call to make follow up appt. for patient in 2 weeks. Activity: Rest for 24 hours, than as tolerated. Please call in RX to patient pharmacy. Diet: As tolerated-Clear Liquids only if nauseated. shower or tub bathe as desired. No driving for 24 hours, no alcoholic beverages for 24 hours, and nothing per vagina (no tampons, douching, or intercoarse) for 2 weeks. Patient to return to the clinic as soon as possible for: Temperature greater than 101F, Severe Pain, Foul discharge from incision or vagina, Excessive Bleeding (more than a period). MCKENZIE LITTLEJOHN MD Aug 16, 2018 12:33
[2018-08-16] MEDS ORDERED: morphine INJ 10 MG/ML 1ML (SYR OR VIAL) IVP ONE (12:45)
[2018-08-16] MEDS ORDERED: MEPERIDINE (DEMEROL) INJ 50 MG/ML IVP ONE (12:45)
[2018-08-16] MEDS ORDERED: fentaNYL INJECTION 100 MCG/2 ML AMP IVP ONE (12:45)
[2018-08-16 14:10] VITALS: BP 130/74
--- NOTE | 2018-08-16 14:11 | Anesthesia-General Post-Op ---
General Patient Condition Mental Status/LOC: Same as Preop Cardiovascular: Satisfactory Nausea/Vomiting: Absent Respiratory: Satisfactory Pain: Controlled Complications: Absent Post Op Complications Complications None Follow Up Care/Instructions Patient Instructions None needed. Anesthesia/Patient Condition Patient Condition Patient is doing well, no complaints, stable vital signs, no apparent adverse anesthesia problems. No complications reported per nursing. D/C home per [facility] [place]: Yes ALIREZA BENITEZ CRNA Aug 16, 2018 14:11
[2018-08-16] MEDS ORDERED: oxyCODONE/APAP 5/325MG (PERCOCET 5) TABLET ONE (14:30)
[2018-08-16 14:40] VITALS: BP 128/63
[2018-08-16 15:10] VITALS: BP 128/63
--- NOTE | 2018-08-16 21:00 | OPERATIVE REPORT ---
DATE OF SERVICE: 08/16/2018 PREOPERATIVE DIAGNOSES: SAUNDRA 3 and dysfunctional uterine bleeding. POSTOPERATIVE DIAGNOSES: Saundra 3 and dysfunctional uterine bleeding. OPERATIVE PROCEDURE: LEEP procedure and two passes with ECC and with D and C. OPERATIVE DESCRIPTION: With the patient in supine position under satisfactory general anesthesia, she was prepped and draped in the usual fashion for vaginal surgery after being repositioned in dorsal lithotomy position in the [facility]. Speculum was placed in the vagina. The cervix was exposed. The cervix was then covered with acetic acid 5% solution. After several minutes that solution was evacuated from the vagina. There was an acetowhite lesion at the 11 and another 12 o'clock position on the ectocervix. There was an acetowhite lesion at the 3 o'clock position. A LEEP procedure ectocervix removal pass was made with a 20 mm LEEP electrode with the power set at 55 stewart. That specimen was tagged at the 12 o'clock position and sent to pathology for permanent section. All the acetowhite areas were removed with that pass. There was minimal bleeding at this point. A second pass was now taken from the endocervix using a modified LEEP electrode to allow for a 1 cm x 1 cm x approximately 2.5 cm deep specimen. That specimen was tagged also at the 12 o'clock position and sent to pathology. Endocervical curettage was then performed on the balance of the remaining cervix and that tissue labeled appropriately and then sent to pathology. The cervix was then serially dilated with Wellington dilators to accommodate an endometrial curette, which was used to curettage the endometrial cavity in all four quadrants with good uterine cry with removal of a small to moderate amount of endometrial tissue. The cervical LEEP sites were touched with electrocautery to affect hemostasis. There was minimal bleeding, so minimal cautery was used. There was no bleeding from the puncture sites. Once the tenaculum was removed, there was no bleeding significant from the cervical os. Sponge and needle counts were correct on completion of the procedure. Estimated blood loss for the procedure was minimal. The patient tolerated the procedure well and was uneventfully awakened from general anesthesia and transferred to the recovery room in stable condition with plans for discharge home PAR. Job ID: [id number] DocumentID: [id number] Dictated Date: 08/16/2018 13:15:03 Hopper Attendant Date: 08/16/2018 21:00:22 Dictated By: MCKENZIE LITTLEJOHN MD
== END 2018-08-16 15:30 | disposition home or self-care (01) ==
LOC: SDC 11:17
PROVIDERS: ATTEND Obstetrics & Gynecology
DX: D06.0 Carcinoma in situ of endocervix (principal); N93.8 Other specified abnormal uterine and vaginal bleeding; R01.1 Cardiac murmur, unspecified; K21.9 Gastro-esophageal reflux disease without esophagitis; F41.9 Anxiety disorder, unspecified; F17.210 Nicotine dependence, cigarettes, uncomplicated
CPT/HCPCS: 36415; 84703; 85025; 87081

== ENCOUNTER 2018-08-23 12:08 | Emergency (ER) | payer BC ==
[~2018-08-23] VITALS: Ht 165.1 cm; Wt 65.8 kg
[~2018-08-23 12:08] MED LIST changes: +IBUP-1780 PO; +OXYC1TAB87 PO
[2018-08-23] MEDS ORDERED: ONDANSETRON 4 MG/2 ML (SDV) Z0FRAN IVP ONE (12:30)
[2018-08-23] MEDS ORDERED: NS IV 1000 ML 1,000 ML IV SCH (12:30)
[2018-08-23] MEDS ORDERED: MECLIZINE 25 MG (ANTIVERT) TAB PO ONE (12:30)
--- NOTE | 2018-08-23 12:32 | ED General ---
General Chief Complaint: Dizziness/Syncope Stated Complaint: LIGHT HEADED/NAUSEA Nursing Triage Note: pt reports she had a leep procedure/dnc last tuesday by francy. pt reports since she has had dizziness, lightheadedness, nasuea, epigastric pain, and l arm pain. Nursing Sepsis Screen: No Definite Risk Source of Information: Patient Exam Limitations: No Limitations History of Present Illness Date Seen by Provider: Aug 23, 2018 Time Seen by Provider: 12:30 Initial Comments To ER with reports of sudden onset dizziness and nausea. This began just prior to arrival when she turned quickly to talk to a coworker. She did have a LEEP procedure 7 days ago. Denies any vomiting. Timing/Duration: 1-2 Days Severity: Moderate Associated Systoms: Denies Symptoms; No Headaches Allergies and Home Medications Allergies Coded Allergies: No Known Drug Allergies (Unverified , 08/15/18) Home Medications Ibuprofen 800 Mg Tablet, 800 MG PO Q6H PRN for PAIN Prescribed by: MCKENZIE CEBALLOS on 08/16/18 1232 Oxycodone HCl/Acetaminophen 1 Each Tablet, 1 TAB PO Q4H Prescribed by: MCKENZIE CEBALLOS on 08/16/18 1232 Patient Home Medication List Home Medication List Reviewed: Yes Review of Systems Review of Systems Constitutional: see HPI EENTM: see HPI Respiratory: no symptoms reported Cardiovascular: no symptoms reported Genitourinary: no symptoms reported Musculoskeletal: no symptoms reported Hematologic/Lymphatic: No Symptoms Reported Immunological/Allergic: no symptoms reported Past Irrfwks-Pfniei-Qoyihy Hx Patient Social History Alcohol Use: Denies Use Recreational Drug Use: No Smoking Status: Current Everyday Smoker Type Used: Cigarettes 2nd Hand Smoke Exposure: Yes Recent Foreign Travel: No Contact w/Someone Who Travel: No Recent Infectious Disease Expo: No Recent Hopitalizations: No Physical Abuse: No Sexual Abuse: No Mistreated: No Fear: No Immunizations Up To Date Date of Influenza Vaccine: Feb 06, 2018 Seasonal Allergies Seasonal Allergies: No Past Medical History Surgeries: Yes (D&C, leep procedure x2) Respiratory: No Cardiac: Yes Heart Murmur Neurological: No Reproductive Disorders: No Female Reproductive Disorders: Menstrual Problems 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 No Pertinent Family Hx Physical Exam Vital Signs Vital Signs - First Documented 08/23/18 12:25 Temp 97.9 Pulse 91 Resp 18 B/P (MAP) 135/89 (104) Pulse Ox 100 Capillary Refill : Less Than 3 Seconds Height, Weight, BMI Height: 5'5.00" Weight: 145lbs. 0.0oz. 65.145189cj; 24.1 BMI Method:Stated General Appearance: No Apparent Distress, WD/WN Eyes: Bilateral Eye Normal Inspection, Bilateral Eye PERRL, Bilateral Eye EOMI , Bilateral Eye Other (horizontal nystagmus with fast phase to the left) HEENT: PERRL/EOMI, TMs Normal Neck: Full Range of Motion, Normal Inspection Respiratory: No Accessory Muscle Use, No Respiratory Distress Cardiovascular: Regular Rate, Rhythm, Normal Peripheral Pulses Gastrointestinal: Normal Bowel Sounds, Non Tender, Soft Extremity: Normal Capillary Refill, Normal Inspection Neurologic/Psychiatric: Alert, Oriented x3 Skin: Normal Color, Warm/Dry Progress/Results/Core Measures Suspected Sepsis Recent Fever Within 48 Hours: No Infection Criteria Present: None New/Unexplained Altered Menta: No Sepsis Screen: No Definite Risk SIRS Temperature:97.9 Pulse: 91 Respiratory Rate: 18 Laboratory Tests 08/23/18 12:33: White Blood Count 10.1 Blood Pressure 135 /89 Mean: 104 Laboratory Tests 08/23/18 12:33: Creatinine 0.76, Platelet Count 331, Total Bilirubin 0.7 Results/Orders Lab Results Laboratory Tests Test 08/23/18 12:33 08/23/18 12:40 Range/Units White Blood Count 10.1 4.3-11.0 10^3/uL Red Blood Count 4.49 4.35-5.85 10^6/uL Hemoglobin 15.4 11.5-16.0 G/DL Hematocrit 44 35-52 % Mean Corpuscular Volume 97 80-99 FL Mean Corpuscular Hemoglobin 34 25-34 PG Mean Corpuscular Hemoglobin Concent 35 32-36 G/DL Red Cell Distribution Width 12.1 10.0-14.5 % Platelet Count 331 130-400 10^3/uL Mean Platelet Volume 9.3 7.4-10.4 FL Neutrophils (%) (Auto) 75 42-75 % Lymphocytes (%) (Auto) 18 12-44 % Monocytes (%) (Auto) 6 0-12 % Eosinophils (%) (Auto) 1 0-10 % Basophils (%) (Auto) 0 0-10 % Neutrophils # (Auto) 7.6 1.8-7.8 X 10^3 Lymphocytes # (Auto) 1.8 1.0-4.0 X 10^3 Monocytes # (Auto) 0.6 0.0-1.0 X 10^3 Eosinophils # (Auto) 0.1 0.0-0.3 10^3/uL Basophils # (Auto) 0.0 0.0-0.1 10^3/uL Sodium Level 139 135-145 MMOL/L Potassium Level 4.1 3.6-5.0 MMOL/L Chloride Level 109 H 98-107 MMOL/L Carbon Dioxide Level 21 21-32 MMOL/L Anion Gap 9 5-14 MMOL/L Blood Urea Nitrogen 7 7-18 MG/DL Creatinine 0.76 0.60-1.30 MG/DL Estimat Glomerular Filtration Rate > 60 BUN/Creatinine Ratio 9 Glucose Level 98 70-105 MG/DL Calcium Level 9.8 8.5-10.1 MG/DL Corrected Calcium 8.5-10.1 MG/DL Total Bilirubin 0.7 0.1-1.0 MG/DL Aspartate Amino Transf (AST/SGOT) 15 5-34 U/L Alanine Aminotransferase (ALT/SGPT) 16 0-55 U/L Alkaline Phosphatase 34 L 40-136 U/L Total Protein 8.0 6.4-8.2 GM/DL Albumin 4.7 H 3.2-4.5 GM/DL Urine Color YELLOW Urine Clarity CLEAR Urine pH 6 5-9 Urine Specific [place] 1.005 L 1.016-1.022 Urine Protein NEGATIVE NEGATIVE Urine Glucose (UA) NEGATIVE NEGATIVE Urine Ketones NEGATIVE NEGATIVE Urine Nitrite NEGATIVE NEGATIVE Urine Bilirubin NEGATIVE NEGATIVE Urine Urobilinogen NORMAL NORMAL MG/DL Urine Leukocyte Esterase 2+ H NEGATIVE Urine RBC (Auto) 5+ H NEGATIVE Urine RBC 10-25 H /HPF Urine WBC 2-5 /HPF Urine Squamous Epithelial Cells 2-5 /HPF Urine Crystals NONE /LPF Urine Bacteria TRACE /HPF Urine Casts NONE /LPF Urine Mucus NEGATIVE /LPF Urine Culture Indicated NO My Orders Orders - KRISTYN MTZ APRN Cbc With Automated Diff (08/23/18 12:28) Comprehensive Metabolic Panel (08/23/18 12:28) Ua Culture If Indicated (08/23/18 12:28) Urine Bedside (08/23/18 12:28) Ns Iv 1000 Ml (Sodium Chloride 0.9%) (08/23/18 12:30) Meclizine Tablet (Antivert Tablet) (08/23/18 12:30) Ondansetron Injection (Zofran Injectio (08/23/18 12:30) Ct Angio Head/Neck (08/23/18 12:28) Iohexol Injection (Omnipaque 350 Mg/Ml 1 (08/23/18 13:00) Received Contrast (Hold Metformin- Contr (08/23/18 13:00) Medications Given in ED Current Medications Medications Dose Ordered Sig/Roma Route Start Time Stop Time Status Last Admin Dose Admin Iohexol 100 ml ONCE ONCE IV 08/23/18 13:00 08/23/18 13:03 DC 08/23/18 13:45 100 ML Meclizine HCl 25 mg ONCE ONCE PO 08/23/18 12:30 08/23/18 12:31 DC 08/23/18 12:40 25 MG Ondansetron HCl 8 mg ONCE ONCE IVP 08/23/18 12:30 08/23/18 12:31 DC 08/23/18 12:40 8 MG Vital Signs/I&O 08/23/18 12:25 Temp 97.9 Pulse 91 Resp 18 B/P (MAP) 135/89 (104) Pulse Ox 100 Capillary Refill : Less Than 3 Seconds Blood Pressure Mean: 104 Departure Impression Primary Impression: Vertigo Disposition: 01 HOME, SELF-CARE Condition: Stable Departure-Patient Inst. Decision time for Depature: 13:51 Referrals: ANDI LIRIANO DO (PCP/Family) Primary Care Physician Patient Instructions: Vertigo (a Type of Dizziness) (DC) Add. Discharge Instructions: 1. Return to ER for any concerns 2. Medication as directed 3. Follow-up with your doctor next week 4. All discharge instructions reviewed with patient and/or family. Voiced understanding. Work/School Note: Work Release Form Date Seen in the Emergency Department: Aug 23, 2018 Return to Work: Aug 25, 2018 KRISTYN MTZ APRN Aug 23, 2018 12:32
[2018-08-23 12:39] LABS: BASOPHILS % (AUTO) 0 % (0-10); EOSINOPHILS # (AUTO) 0.1 10^3/uL (0.0-0.3); EOSINOPHILS % (AUTO) 1 % (0-10); HEMATOCRIT 44 % (35-52); HEMOGLOBIN 15.4 G/DL (11.5-16.0); LYMPHOCYTES # (AUTO) 1.8 X 10^3 (1.0-4.0); LYMPHOCYTES % (AUTO) 18 % (12-44); MEAN CORPUSCULAR HEMOGLOBIN 34 PG (25-34); MEAN CORPUSCULAR HGB CONC 35 G/DL (32-36); MEAN CORPUSCULAR VOLUME 97 FL (80-99); MEAN PLATELET VOLUME 9.3 FL (7.4-10.4); MONOCYTES # (AUTO) 0.6 X 10^3 (0.0-1.0); MONOCYTES % (AUTO) 6 % (0-12); NEUTROPHILS # (AUTO) 7.6 X 10^3 (1.8-7.8); NEUTROPHILS % (AUTO) 75 % (42-75); PLATELET COUNT 331 10^3/uL (130-400); RED CELL DISTRIBUTION WIDTH 12.1 % (10.0-14.5); WHITE BLOOD COUNT 10.1 10^3/uL (4.3-11.0)
[2018-08-23 12:48] LABS: BILIRUBIN,URINE NEGATIVE (NEGATIVE); CLARITY,URINE CLEAR; COLOR,URINE YELLOW; GLUCOSE, URINE (UA) NEGATIVE (NEGATIVE); KETONES,URINE NEGATIVE (NEGATIVE); LEUKOCYTE ESTERASE ,URINE 2+ (NEGATIVE); NITRITE,URINE NEGATIVE (NEGATIVE); PH,URINE 6 (5-9); PROTEIN,URINE NEGATIVE (NEGATIVE); UROBILINOGEN,URINE NORMAL (NORMAL)
[2018-08-23 12:59] LABS: ALANINE AMINOTRANSFERASE 16 U/L (0-55); ALBUMIN 4.7 GM/DL (3.2-4.5); ALKALINE PHOSPHATASE 34 U/L (40-136); BILIRUBIN,TOTAL 0.7 MG/DL (0.1-1.0); BUN/CREATININE RATIO 9; CALCIUM 9.8 MG/DL (8.5-10.1); CARBON DIOXIDE 21 MMOL/L (21-32); CHLORIDE 109 MMOL/L (98-107); CREATININE SERUM 0.76 MG/DL (0.60-1.30); GFR ESTIMATED > 60; GLUCOSE 98 MG/DL (70-105); POTASSIUM 4.1 MMOL/L (3.6-5.0); SODIUM 139 MMOL/L (135-145)
[2018-08-23] MEDS ORDERED: IOHEXOL 350 MG/ML 100 ML (OMNIPAQUE 350) VIAL IV ONE (13:00)
[2018-08-23] MEDS ORDERED: HOLD METFORMIN - RECEIVED CONTRAST 20 ML VIAL IV SCH (13:00)
[2018-08-23 13:12] LABS: BACTERIA,URINE TRACE /HPF
[2018-08-23] MEDS ORDERED: ANTACID SUSP 30 ML UDC (MYLANTA) PO ONE (14:00)
[2018-08-23] MEDS ORDERED: LIDOCAINE 2% VISCOUS 15 ML UDC PO ONE (14:00)
[2018-08-23 15:25] VITALS: BP 118/81
--- NOTE | 2018-08-23 16:08 | Diagnostic Imaging Report ---
PROCEDURE: CT angiography of the head and CT angiography of the neck with and without contrast. TECHNIQUE: Contiguous noncontrast images were obtained from the skull base through the vertex. After intravenous contrast administration, helical CT angiography of the neck was performed. Source data was reformatted into multiple MIP projections. Delayed post contrast acquisition was also obtained. Auto Exposure Controls were utilized during the CT exam to meet ALARA standards for radiation dose reduction. INDICATION: Headache, nausea, and lightheadedness. No precontrast imaging was performed. Delayed postcontrast imaging is without abnormal enhancement. FINDINGS: CT angiographic portion of the study demonstrates three-vessel branching pattern to the aortic arch. Both common carotid arteries are widely patent. Carotid bifurcations are unremarkable. Internal carotid arteries appear to be patent. There is perfusion in bilateral middle cerebral arteries. No filling defects are seen. Bilateral posterior cerebral arteries are patent. Bilateral anterior cervical arteries are patent. No filling defects are seen. The basilar artery is unremarkable. The vertebral arteries are patent and appear to be codominant. No definite aneurysm is seen. IMPRESSION: Unremarkable CT angiogram of the head and neck. Dictated by: Dictated on workstation # [id number]
== END 2018-08-23 15:25 | disposition home or self-care (01) ==
LOC: EDUNIT# 12:08 → ER 12:09
DX: R42 Dizziness and giddiness (principal); F41.9 Anxiety disorder, unspecified; F17.210 Nicotine dependence, cigarettes, uncomplicated; Z98.890 Other specified postprocedural states; Z97.5 Presence of (intrauterine) contraceptive device
CPT/HCPCS: 36415; 70496; 70498; 80053; 81000; 83690; 84703; 85025

== ENCOUNTER 2018-09-04 11:58 | Outpatient (CLI) | payer BC ==
[~2018-09-04] VITALS: Ht 165.1 cm; Wt 65.8 kg
[2018-09-04 12:18] VITALS: BP 145/82
== END 2018-09-04 12:15 | disposition home or self-care (01) ==
LOC: PREOP 11:58
PROVIDERS: ATTEND Obstetrics & Gynecology
DX: Z01.818 Encounter for other preprocedural examination (principal)
CPT/HCPCS: 87081

== ENCOUNTER 2018-09-08 11:25 | Day surgery (SDC) | payer BC ==
[2018-09-08] VITALS (16 sets, daily range): BP systolic 24–136; BP diastolic 51–98
[~2018-09-08] VITALS: Ht 165.1 cm; Wt 65.8 kg
--- OUTSIDE RECORDS SUMMARY | 2018-09-08 11:31 | XMS REPORT ---
Author Author Migration, Doctor Organization [facility] Address Unknown Phone Unavailable Care Team Providers Care Chief Creative Officer Name Role Phone Migration, Doctor Unavailable Unavailable PROBLEMS Type Condition ICD9-CM Code UNM45-PN Code Onset Dates Condition Status SNOMED Code Problem Acute bronchitis 466.0 Active 24600916 Problem Generalized anxiety disorder 300.02 Active 69136255 Problem Urinary frequency 788.41 Active 577046678 Problem Unspecified disorder of menstruation and other abnormal bleeding from female genital tract 626.9 Active 284570374 Problem Other and unspecified noninfectious gastroenteritis and colitis 558.9 Active [id number] ALLERGIES No Information ENCOUNTERS Encounter Location Date Diagnosis [facility] [id number] [place] [phone] May, Acute sinusitis J01.90 [facility] [id number] [place] [phone] Nov, Generalized anxiety disorder 300.02 [facility] [address] [phone] Jul, [facility] [id number] [place] [phone] Jul, [facility] [id number] [place] [address] Dec, [facility] [id number] [place] [address] Sep, [facility] [address] [address] Jun, [facility] [id number] [place] [phone] Jun, [facility] [address] [phone] Sep, [facility] [address] [facility] [id number] [place] [address] Jul, 2011 [facility] [address] [facility] [id number] [address] Jun, [facility] [address] [facility] [id number], [place] [address] Jun, IMMUNIZATIONS No Known Immunizations SOCIAL HISTORY Never Assessed REASON FOR VISIT EMR-[facility] PLAN OF CARE VITAL SIGNS MEDICATIONS No Known Medications RESULTS No Results PROCEDURES No Known procedures INSTRUCTIONS MEDICATIONS ADMINISTERED No Known Medications MEDICAL (GENERAL) HISTORY Type Description Date Medical History anxiety Surgical History dilatation and curettage 2009
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
[2018-09-08] MEDS ORDERED: ONDANSETRON 4 MG/2 ML (SDV) Z0FRAN ONE ×2 (11:37→13:49)
[2018-09-08] MEDS ORDERED: ROCURONIUM 10 MG/ML 5 ML SYRINGE IV ONE (11:37)
[2018-09-08] MEDS ORDERED: DEXAMETHASONE 10 MG/ML (DECADRON) 1 ML VIAL ONE (11:37)
[2018-09-08] MEDS ORDERED: MIDAZOLAM 2 MG/2 ML (VERSED) VIAL ONE (11:37)
[2018-09-08] MEDS ORDERED: fentaNYL INJECTION 250 MCG/5 ML AMP ONE (11:37)
[2018-09-08] MEDS ORDERED: SEVOFLURANE (ULTANE) 15 ML INHAL SOLN ONE ×3 (11:37→13:52)
[2018-09-08] MEDS ORDERED: proPOfol 200 MG/20 ML (DIPRIVAN) VIAL IV ONE (11:37)
[2018-09-08] MEDS ORDERED: BUP/EPI 0.25% 1:200,000 (MARCAINE) 10 ML VIAL IJ ONE (11:42)
[2018-09-08] MEDS: LACTATED RINGERS 1,000 ML IV PRN ×2 (11:55→13:15)
[2018-09-08] MEDS ORDERED: KETOROLAC 30 MG/ML VIAL ONE (11:58)
[2018-09-08] MEDS ORDERED: NEOSTIGMINE 1 MG/ML 5 ML SYRINGE ONE (11:58)
[2018-09-08] MEDS ORDERED: LIDOCAINE PF 2% 5 ML (XYLOCAINE) VIAL ONE (11:58)
[2018-09-08] MEDS ORDERED: GLYCOPYRROLATE 0.2 MG/ML (ROBINUL) 2 ML VIAL ONE (11:58)
[2018-09-08] MEDS ORDERED: ONDANSETRON 4 MG/2 ML (SDV) Z0FRAN IV ONE (12:00)
[2018-09-08] MEDS ORDERED: ceFAZolin INJECTION 1,000 MG in WATER (STERILE) FOR INJECTION 10 ML IV ONE (12:00)
[2018-09-08] MEDS ORDERED: SCOPOLAMINE 1.5 MG (TRANSDERM-SCOP) PATCH TOP ONE (12:00)
[2018-09-08] MEDS ORDERED: FAMOTIDINE 20MG/2ML IV (PEPCID) IV ONE (12:00)
[2018-09-08] MEDS ORDERED: ceFAZolin 1,000 MG/SWFI 10 ML IV PUSH IV ONE ×2 (12:00)
--- NOTE | 2018-09-08 12:33 | Progress Note-Pre Operative ---
Pre-Operative Progress Note H&P Reviewed The H&P was reviewed, patient examined and no changes noted. Date Seen by Provider: September 08, 2018 Time Seen by Provider: 12:32 Date H&P Reviewed: September 08, 2018 Time H&P Reviewed: 12:33 Pre-Operative Diagnosis: SAUNDRA 3 MCKENZIE LITTLEJOHN MD September 08, 2018 12:33
--- NOTE | 2018-09-08 12:34 | Progress Note-Post Operative ---
Post-Operative Progess Note Surgeon (s)/Central Communications Specialist (s) Surgeon MCKENZIE LITTLEJOHN MD Central Communications Specialist: Dorita George Pre-Operative Diagnosis SAUNDRA 3 Post-Operative Diagnosis Same with abnormal appendix/appendicitis and with pathology pending Procedure & Operative Findings Date of Procedure 09/08/18 Procedure Performed/Findings TL H with bilateral salpingectomies and laparoscopic appendectomy Anesthesia Type GETA Estimated Blood Loss Estimated blood loss (mL): Minimal Specimens/Packing Specimens Removed Uterus and fallopian tubes Packing: None MCKENZIE LITTLEJOHN MD September 08, 2018 12:34
[2018-09-08] MEDS ORDERED: DOCU-143 PO (12:36)
[2018-09-08] MEDS ORDERED: IBUP-1780 PO (12:36)
[2018-09-08] MEDS ORDERED: OXYC1TAB87 PO (12:36)
[2018-09-08] MEDS ORDERED: ACET-1672 PO (12:36)
--- NOTE | 2018-09-08 12:37 | Discharge Instructions ---
Discharge Instructions Discharge Medications New, Converted or Re-Newed RX: RX on Chart Patient Instructions Patient Instructions: As directed Return to The Hospital For: As directed Activity & Diet Discharge Diet: No Restrictions Activity as Tolerated: No Orders-Post D/C & Referrals Follow Up Appt: Recurrent to clinic on Tuesday, September 11, 2018 at 930 a.m. for staple removal Call to make follow up appt. for patient in 4 weeks. Activity: Rest for 24 hours, than as tolerated. Wound Care: May remove Band-Aid tomorrow. Replace as desired. Keep incisions clean and dry. Wash daily with soap and water. Please call in RX to patient pharmacy. Diet: As tolerated-Clear Liquids only if nauseated. may shower or tub bathe as desired. No driving for 24 hours, no alcoholic beverages for 24 hours, and nothing per vagina (no tampons, douching, or intercourse) for 8 weeks. Patient to return to the clinic as soon as possible for: Temperature greater than 101F, Severe Pain, Foul discharge from incision or vagina, Excessive Bleeding (more than a period). MKCENZIE LITTLEJOHN MD September 08, 2018 12:37
[2018-09-08] MEDS ORDERED: MEPERIDINE (DEMEROL) INJ 100 MG/ML IM PRN (13:45)
[2018-09-08] MEDS ORDERED: PROMETHAZINE INJ 25 MG/ML (PHENERGAN) AMP IM PRN (13:45)
[2018-09-08] MEDS ORDERED: ONDANSETRON 4 MG/2 ML (SDV) Z0FRAN IVP PRN ×2 (13:45→14:15)
[2018-09-08] MEDS: KETOROLAC 30 MG/ML VIAL IVP SCH ×2 (13:50→19:56)
[2018-09-08] MEDS ORDERED: MEPERIDINE (DEMEROL) INJ 50 MG/ML ONE (14:02)
[2018-09-08] MEDS ORDERED: HYDROmorphone 2 MG/ML VIAL (DILAUDID) IV ONE (14:15)
[2018-09-08] MEDS ORDERED: HYDROmorphone 2 MG/ML VIAL (DILAUDID) ONE (14:22)
--- NOTE | 2018-09-08 15:20 | NUR ---
FRANK PETERS admitted to room 3305-1 VIA PT BED ACC BY EMANUEL HERNANDEZ AFTER A ROBOTIC ASSISTED LAPAROSCOPIC HYSTERECTOMY AND BILATERAL SALPINGECTOMIES TODAY BY DR. LITTLEJOHN. RUBÉN PETERS introduced to surroundings, call light, bed controls, phone, TV, temperature control, lights, meal times, smoking policy, visitor policy, side rail policy, bathrooms and showers. Patient Rights given to patient in the handbook.
--- NOTE | 2018-09-08 15:45 | NUR ---
CONTINUOUS SP02 MONITORING. MAINTAINING SPO2 98-100% ON ROOM AIR.
[2018-09-08] MEDS ORDERED: D5 LR IV SOLUTION 1,000 ML IV ONE (15:55)
[2018-09-08] MEDS ORDERED: PROMETHAZINE INJ 25 MG/ML (PHENERGAN) AMP ONE (15:56)
[2018-09-08] MEDS ORDERED: MEPERIDINE (DEMEROL) INJ 100 MG/ML ONE (15:56)
[2018-09-08] MEDS: D5 LR IV SOLUTION 1,000 ML IV SCH ×2 (16:05→23:58)
--- NOTE | 2018-09-08 16:06 | NUR ---
DEMEROL 100 MG/PHENERGAN 25 MG IM IN RIGHT VG SITE. SITE CLEAR. S.O. AT BEDSIDE.
--- NOTE | 2018-09-08 16:20 | NUR ---
RT HERE TO DO I.S.
--- NOTE | 2018-09-08 17:30 | NUR ---
SLEEPING WHEN ENTERED ROOM.
--- NOTE | 2018-09-08 18:30 | NUR ---
DR. LITTLEJOHN CALLED TO SEE IF PT CAN HAVE HER KEATING OUT.
--- NOTE | 2018-09-08 18:35 | NUR ---
KEATING D/C'ED. 225 CC CLEAR YELLOW URINE IN THE BAG. PERICARE WITH PAD/UNDERWEAR APPLIED. SCANT BLEEDING. SWEATPANTS ON PER PT REQUEST.
[2018-09-08] MEDS: oxyCODONE/APAP 5/325MG (PERCOCET 5) TABLET PO PRN ×2 (19:43→23:17)
--- NOTE | 2018-09-08 19:43 | NUR ---
PT JUST ATE FOOD BROUGHT IN. PERCOCET 2 TABS P.O. FOR C/O ABD PAIN.
[2018-09-09 04:27] VITALS: BP 103/50
[2018-09-09] MEDS: KETOROLAC 30 MG/ML VIAL IVP SCH (04:27)
[2018-09-09] MEDS ORDERED: IBUPROFEN 800 MG (MOTRIN) TAB PO ONE (07:56)
--- NOTE | 2018-09-09 08:00 | NUR ---
Dr Bhatti to see pt and new orders for discharge received.
--- NOTE | 2018-09-09 08:32 | Anesthesia-General Post-Op ---
General Patient Condition Mental Status/LOC: Same as Preop Cardiovascular: Satisfactory Nausea/Vomiting: Absent Respiratory: Satisfactory Pain: Controlled Complications: Absent Post Op Complications Complications None Follow Up Care/Instructions Patient Instructions None needed. Anesthesia/Patient Condition Patient Condition Patient is doing well, no complaints, stable vital signs, no apparent adverse anesthesia problems. No complications reported per nursing. JACINTO RICCI CRNA September 09, 2018 08:32
[2018-09-09 08:43] VITALS: BP 121/63
[2018-09-09] MEDS ORDERED: DOCUSATE SODIUM 100 MG (COLACE) CAP PO SCH (09:00)
--- NOTE | 2018-09-09 09:03 | NUR ---
Prescriptions called to [facility]
--- NOTE | 2018-09-09 09:05 | NUR ---
Discharge instructions explained, signed and copy to pt. pt verbalized understanding of instructions and denied questions.
--- NOTE | 2018-09-09 09:07 | Progress Note-Standard ---
Standard Progress Note Progress Notes/Assess & Plan Date Seen by a Provider: September 09, 2018 Time Seen by a Provider: 09:06 Progress/Assessment & Plan This patient is without complaint. She is ambulating, voiding, tolerating oral intake well has good pain control. Patient denies chest pain, denies shortness breath, denies nausea vomiting and denies headache. Vital Signs Date Time Temp Pulse Resp B/P (MAP) Pulse Ox O2 Delivery O2 Flow Rate FiO2 09/09/18 08:43 98.2 58 18 121/63 (82) 98 Room Air 09/09/18 04:27 98.6 61 18 103/50 (67) 99 Room Air 09/08/18 23:17 99.2 74 18 117/71 (86) 100 Room Air 09/08/18 19:56 99.2 70 16 114/71 (85) 100 Room Air 09/08/18 17:30 68 16 102/57 (72) 99 Room Air 09/08/18 17:00 67 16 120/74 (89) 98 Room Air 09/08/18 16:30 64 16 112/51 (71) 98 Room Air 09/08/18 16:26 Room Air 09/08/18 16:00 56 16 120/77 (91) 99 Room Air 09/08/18 15:30 66 16 119/74 (89) 98 Room Air 09/08/18 15:20 98.6 66 16 119/70 (86) 100 Room Air 09/08/18 15:00 99.2 16 100 Room Air 09/08/18 14:50 16 100 OxyMask 09/08/18 14:40 16 100 OxyMask 5 09/08/18 14:30 16 100 OxyMask 10 09/08/18 14:20 16 100 OxyMask 10 09/08/18 14:10 16 100 OxyMask 10 09/08/18 14:06 97.3 20 100 OxyMask 10 09/08/18 11:30 97.9 63 16 113/72 (86) 98 Room Air I & O 09/09/18 07:00 Intake Total 4585 ml Output Total 1475 ml Balance 3110 ml Vital signs are stable. Patient is afebrile. The abdomen is benign. Bowel sounds are present. Surgical incisions are clean and dry with intact dressing Extreme show no clubbing cyanosis. There is no Homans sign. Assessment and plan postoperative day number 1 doing well plan is for routine convalescence care with discharge home Final Diagnosis SAUNDRA 3/appendicitis MCKENZIE LITTLEJOHN MD September 09, 2018 09:07
--- NOTE | 2018-09-09 09:15 | NUR ---
Discharged to home with belongings in hand. Downstairs in wheelchair by this RN to private vehicle.
--- NOTE | 2018-09-09 12:24 | OPERATIVE REPORT ---
DATE OF SERVICE: 09/08/2018 PREOPERATIVE DIAGNOSES: SAUNDRA 3. POSTOPERATIVE DIAGNOSIS: SAUNDRA 3 with appendicitis. OPERATIVE PROCEDURE: Total laparoscopic hysterectomy with bilateral salpingectomies as well as laparoscopic appendectomy. OPERATIVE DESCRIPTION: With the patient in the supine position under satisfactory general anesthesia, she was repositioned in dorsal lithotomy position in the [facility] and then prepped and draped in the usual fashion for abdominal and vaginal surgery using the [place] equipment. The weighted speculum placed in posterior fornix of vagina, cervix exposed and grasped anteriorly with single tooth tenaculum. Uterus sounded to 9 cm with uterine sound. The cervix was then serially dilated with Wellington dilators to accommodate a Xiomara II manipulator, which was placed using a 6 mm x 8 cm uterine probe and a 30 mm colpotomy ring. Sutures of #1 Vicryl placed at 3 and 9 o'clock position of the cervix to affix the uterus to the manipulator. The balloon on the uterine probe was not insufflated. At this point, as plan was for pelvic washings before and during that balloon and potentially ejecting any uterine contents into the peritoneal cavity. With the manipulator placed, a Galaviz catheter placed in the urinary bladder. The patient was brought in low dorsal lithotomy position. A 12 mm incision was made 3 cm superior to the umbilicus. Veress needle was placed through that incision into the abdominal cavity. Correct placement confirmed with a water drop test. The abdomen was insufflated with 2.4 liters of carbon dioxide and the Veress needle was removed and a 12 mm Optiview laparoscopic port placed through the incision. The abdominal wall was transilluminated and 8 mm ports were placed through incisions of that size, 8 cm lateral to the umbilicus. All three incision sites were infiltrated with 0.25% Marcaine with epinephrine prior to incision and port placement. The patient was now placed in a slight degree of Trendelenburg and pelvic washings were obtained. After obtaining pelvic washings and those were being sent to the pathology separately for cytology, then the uterine manipulator balloon was filled with 10 mL of saline. The patient was placed in steep Trendelenburg allowing the bowel to spill of the pelvis. The da Morenita column advanced on the patient and docked and I retired to the da [place]nita console. On the console, using the vessel sealer on the right a bipolar fenestrated grasper on the left, the pelvis was first examined. Both fallopian tubes were normal in appearance as were the ovaries. There was evidence of ovulation on the left ovary in particular. Both ureters were clearly visible and seemed to peristalt. The uterus was somewhat mottled in appearance, but otherwise appeared normal. The appendix was identified, it was involved in extensive adhesions down the pelvic brim as was the terminus of the cecum to the pelvic brim and some of the mesentery of the small bowel was adherent over and around the appendix and the other adhesions. Decision was made to proceed with appendectomy concurrent with the hysterectomy, because of the appendix, the distal 2/3 was injected, indurated and appeared to be inflamed consistent with some degree of appendicitis. Attention was turned back to the pelvis. Using the vessel sealer, the right fallopian tube was grasped and elevated and then the vessel sealer was clamped across the mesosalpinx. That tissue was clamped, cauterized and divided. That was done stepwise across to the uteroovarian pedicle, which was clamped, cauterized and divided in the same manner as was the round ligament, the broad ligament, and eventually the cardinal ligament on the right. Same procedure performed on the left, allowing for removal of both fallopian tube with conservation of both ovaries. The anterior lower uterine segment peritoneum was now divided having replaced the vessel sealer with monopolar spenser. The bladder was carefully dissected down off the lower uterine segment. Colpotomy incision was started at 12 o'clock position onto the colpotomy ring. That incision was continued circumferentially until the entire colpotomy ring was exposed. This allowed for removal of the uterus with tubes still attached through the vagina. The vaginal cuff was closed with a single suture of V-Loc barbed suture starting first from the left angle and continuing across to the right and taking care to ensure inclusion of the uterine vessel pedicles and then with the last several stitches the bladder peritoneum was brought back over the vaginal cuff. Hemostasis was complete. Blood loss at this point was pretty minimal, certainly less than 30 mL. Attention was now turned to the appendix. It was grasped and elevated. The adhesions were taken free as were the adhesions of the small bowel mesentery and of the cecum. The appendix again was quite indurated and swollen in its distal two thirds, there were injected blood vessels. The appendix was eventually dissected free. The mesoappendix was divided to the base of the appendix. At this point, the da Morenita portion of the procedure was halted in favor of continuing with conventional laparoscopy to allow for the use of a stapler to remove the appendix. With the da Morenita instruments removed and the column undocked using a 5 mm laparoscope in the left lateral port, I stapled in the midline port and a grasper in the right lateral port. The appendix was grasped and elevated. The base of the appendix was clamped and stapled with the Endo-GHISLAINE. The appendix was placed in an Endobag and brought out through the umbilical port. The stump of the appendix was copiously irrigated and treated with several drops of Betadine solution. The pelvis had been irrigated prior to initiating the appendix that was irrigated a final time. Hemostasis was complete. There was no abnormal pathology. Procedure at this point was terminated. The operative instruments removed under direct vision as were the ports. The abdomen was evacuated of the insufflating gas in the process of removing the ports. The patient was brought out of Trendelenburg. The skin incisions were stapled after closing the fascia at the supraumbilical incision with [id number] suture of 2-0 Vicryl. A speculum was placed in the vagina. The vaginal cuff examined and found completely reapproximated and completely hemostatic. Galaviz catheter was left to dependent drainage. Sponge and needle counts were correct. Estimated blood loss was minimal. The patient was now uneventfully awakened from her general anesthesia and transferred to recovery room in stable condition. Job ID: [id number] DocumentID: [id number] Dictated Date: 09/08/2018 13:55:52 Wire Loop Machine Operator Date: 09/09/2018 05:26:38 Dictated By: MCKENZIE LITTLEJOHN MD
[2018-09-09] MEDS ORDERED: IBUPROFEN 800 MG (MOTRIN) TAB PO SCH (13:45)
== END 2018-09-09 09:15 | disposition home or self-care (01) ==
LOC: SDC 11:25 → WS 15:20 → SDC 09-09 09:15
PROVIDERS: ATTEND Obstetrics & Gynecology
DX: D06.0 Carcinoma in situ of endocervix (principal); K37 Unspecified appendicitis; F41.9 Anxiety disorder, unspecified; F17.210 Nicotine dependence, cigarettes, uncomplicated
CPT/HCPCS: 36415; 84703; 86850; 86900; 86901; 88112; 88302; 88305; 88309; 94664